=== PATIENT | female | born 1985 | race Caucasian/White ===

== ENCOUNTER → 2018-06-17 | Outpatient (CLI) | payer OTHER, SELFPAY ==
[2018-06-17 16:25] LABS: BASO % 0.2 % (0.0-1.0); EOS # 0.1 10^3/uL (0.0-0.50); HEMOGLOBIN 10.9 g/dl (12.0-15.5); LYMPH # 1.4 10^3/uL (1.5-4.5); LYMPH % 15.9 % (24.0-44.0); MEAN CORPUSCULAR HEMOGLOBIN 28.8 pg (27.0-33.0); MEAN CORPUSCULAR VOLUME 87.1 fl (80.0-96.0); MONO # 0.6 10^3/uL (0.0-0.8); MONO % 6.9 % (0.0-5.0); NEUTROPHILS # 6.7 10^3/uL (1.8-7.7); NEUTROPHILS % 75.5 % (36.0-66.0); PLATELET COUNT, AUTOMATED 191 10^3/uL (150-450); RED BLOOD COUNT 3.79 10^6/uL (4.00-5.40); WHITE BLOOD COUNT 8.9 10^3/uL (4.0-10.0)
[2018-06-17 16:57] LABS: FREE T4 1.14 NG/DL (0.76-1.46)
[2018-06-17 17:59] LABS: GC DNA AMPLIFICATION NEGATIVE (NEGATIVE)
--- NOTE | 2018-06-18 09:50 | REP ---
Clinical: Anatomical evaluation. Comparison: None . Findings: Examination demonstrates a single live intrauterine in breech presentation. motion is identified by technologist. Placenta is noted anterior and grade grade zero without evidence for placenta previa or abruption. Amniotic fluid volume is normal. Cervix measures 3.5 cm in length and appears closed. No evidence for nuchal cord. Incidental placental venous alberto noted. Gestational age by LMP 18 weeks 3 days with FADI 11/15/2018 . Gestational age by current measurements 18 weeks for the with FADI is 11/14/2018 . FHR equals 157 beats per minute. BPD 4.1 cm 18 weeks 4 days HC 15.5 cm 18 weeks 3 days AC 13.3 cm 18 weeks 5 days FL 2.8 cm 18 weeks 3 days HL 2.7 cm 18 weeks 6 days HC/AC ratio 1.17 Estimated weight 248 grams ( 54th percentile). Anatomical assessment demonstrates normal structures including cranium, choroid plexus, cavum, cerebellum/posterior fossa, facial features, lungs, cardiac ventricular outflow tracts, diaphragm, stomach, cord insertion/three-vessel cord, kidneys/bladder, and upper extremities. Limited evaluation of the four-chamber heart, spine and lower extremities due to positioning. Impression: Single live intrauterine in breech presentation demonstrating appropriate interval growth. Anatomical limitations as described above warrant reevaluation and follow-up. Electronically Signed by Nii Mead MD 06/17/2018 04:24 P
[2018-06-18 10:24] LABS: CHLAMYDIA DNA AMPLIFICATION NEGATIVE (NEGATIVE)
[2018-06-19 10:34] LABS: RUBELLA IgG QUALITATIVE IMMUNE (IMMUNE)
[2018-06-19 11:03] LABS: HIV 1&2 SCREEN CENTAUR NEGATIVE (NEGATIVE)
== END ==
LOC: M LAB 15:11
PROVIDERS: ATTEND Advanced Practice Midwife
DX: Z34.82 Encounter for supervision of other normal pregnancy, second trimester (principal); Z3A.18 18 weeks gestation of pregnancy

== ENCOUNTER → 2018-07-05 | Outpatient (CLI) | payer OTHER ==
--- NOTE | 2018-07-05 17:06 | REP ---
OB ULTRASOUND: Real-time sonographic evaluation of the gravid uterus is performed. There is a single living intrauterine gestation. Estimated gestational age 21 weeks, EDC 11/15/2018. Today's measurements indicate appropriate growth. BPD 48 mm = 20 weeks 3 days, 36th percentile HC 178 mm = 20 weeks 2 days, 28th percentile AC 167 mm = 21 weeks 5 days, 66th percentile FL 35 mm = 21 weeks 1 day, 55th percentile HC/AC ratio 1.06, within normal range. Estimated weight 416 grams, 58th percentile. heart rate 139 beats per minute. SEEN/GROSSLY UNREMARKABLE Lateral ventricles yes Posterior fossa yes Upper lip yes Four-chamber heart yes LVOT yes RVOT yes Stomach yes Cord insertion yes Three vessel cord yes Kidneys yes Bladder yes Spine yes position: Breech. Placenta: Anterior and grade 0 with no previa or abruption. Amniotic fluid: Within normal limits. Cervix: Closed and measures 4.6 cm in length. Electronically Signed by Cecil Willis MD 07/05/2018 05:11 P
== END ==
LOC: M RAD 15:58
PROVIDERS: ATTEND Advanced Practice Midwife
DX: O09.512 Supervision of elderly primigravida, second trimester (principal); Z3A.21 21 weeks gestation of pregnancy; O32.1XX0 Maternal care for breech presentation, not applicable or unspecified

== ENCOUNTER → 2018-08-13 | Outpatient (CLI) | payer OTHER ==
[2018-08-13 16:05] LABS: BASO % 0.2 % (0.0-1.0); EOS # 0.1 10^3/uL (0.0-0.50); EOS % 0.8 % (0.0-3.0); HEMATOCRIT 32.1 % (36.0-47.0); HEMOGLOBIN 10.9 g/dl (12.0-15.5); LYMPH # 2.1 10^3/uL (1.5-4.5); LYMPH % 17.7 % (24.0-44.0); MEAN CORPUSCULAR HEMOGLOBIN 29.6 pg (27.0-33.0); MEAN CORPUSCULAR VOLUME 87.2 fl (80.0-96.0); MONO # 0.5 10^3/uL (0.0-0.8); MONO % 4.1 % (0.0-5.0); NEUTROPHILS % 76.6 % (36.0-66.0); PLATELET COUNT, AUTOMATED 214 10^3/uL (150-450); RED BLOOD COUNT 3.68 10^6/uL (4.00-5.40); WHITE BLOOD COUNT 11.7 10^3/uL (4.0-10.0)
[2018-08-13 16:32] LABS: FREE THYROXINE INDEX 4.4 % (1.3-4.8); THYROID STIMULATING HORMONE 0.631 uIU/ML (0.358-3.740); THYROXINE (T4) 17.6 UG/DL (4.5-12.0)
== END ==
LOC: M LAB 14:33
PROVIDERS: ATTEND Obstetrics & Gynecology
DX: O09.512 Supervision of elderly primigravida, second trimester (principal)

== ENCOUNTER → 2018-09-18 | Outpatient (CLI) | payer OTHER ==
[2018-09-18 11:27] LABS: FREE T4 1.34 NG/DL (0.76-1.46); THYROID STIMULATING HORMONE 0.517 uIU/ML (0.358-3.740)
== END ==
LOC: M LAB 10:11
PROVIDERS: ATTEND Nurse Practitioner Family
DX: E03.9 Hypothyroidism, unspecified (principal)

== ENCOUNTER → 2018-10-01 | Outpatient (CLI) | payer OTHER ==
--- NOTE | 2018-10-02 06:44 | REP ---
Clinical: Growth evaluation. Comparison: 07/05/2018 . Findings: Examination demonstrates a single live intrauterine in cephalic presentation. motion is identified by technologist. Placenta is noted anterior and grade grade 1 without evidence for placenta previa or abruption. Amniotic fluid volume is normal. Cervix measures 4.8 cm in length and appears closed. No evidence for nuchal cord. Gestational age by LMP 33 weeks 4 days with FADI 11/15/2018 . Gestational age by current measurements 34 weeks 0 days with FADI 11/12/2018 . FHR equals 136 beats per minute. BPD 8.2 cm 33 weeks 0 days HC 30.3 cm 33 weeks 4 days AC 29.9 cm 33 weeks 6 days FL 6.8 cm 35 weeks 0 days HL 6.0 cm 34 weeks 3 days HC/AC ratio 1.01 Estimated weight 2345 grams ( 54th percentile). Amniotic fluid index: 17.2 cm (8.2 124.7) Umbilical cord SD ratio: 2.50 Impression: Single live intrauterine in cephalic presentation demonstrating appropriate interval growth. No gross abnormalities are identified. Electronically Signed by Nii Mead MD 10/02/2018 06:35 A
== END ==
LOC: M RAD 15:36
PROVIDERS: ATTEND Advanced Practice Midwife
DX: O26.843 Uterine size-date discrepancy, third trimester (principal); Z3A.34 34 weeks gestation of pregnancy

== ENCOUNTER → 2018-10-24 | Outpatient (REF) | payer OTHER | LOC: M LAB REF 17:00 | PROVIDERS: ATTEND Advanced Practice Midwife | DX: O99.283 Endocrine, nutritional and metabolic diseases complicating pregnancy, third trimester (principal) ==

== ENCOUNTER 2018-11-11 23:27 | Inpatient (IN) | payer OTHER ==
[~2018-11-11] VITALS: Ht 154.9 cm; Wt 69.3 kg
[2018-11-12] VITALS (41 sets, daily range): BP systolic 86–150; BP diastolic 54–102
[2018-11-12 00:25] LABS: HEMATOCRIT 32.6 % (36.0-47.0); HEMOGLOBIN 11.5 g/dl (12.0-15.5); MEAN CORPUSCULAR HEMOGLOBIN 30.7 pg (27.0-33.0); MEAN CORPUSCULAR HGB CONC 35.3 g/dl (32.0-36.5); MEAN CORPUSCULAR VOLUME 86.9 fl (80.0-96.0); PLATELET COUNT, AUTOMATED 197 10^3/uL (150-450); RED BLOOD COUNT 3.75 10^6/uL (4.00-5.40); WHITE BLOOD COUNT 13.2 10^3/uL (4.0-10.0)
[2018-11-12] MEDS: miSOPROStol 50 MCG 1/2 TAB (S0191) PO SCH ×4 (04:30→22:44)
--- NOTE | 2018-11-12 10:46 | HPE ---
DATE OF ADMISSION: 11/11/2018 HISTORY OF PRESENT ILLNESS: The patient is a 33-year-old female who is a 2, para 0-0-1-0 at 39 weeks and 4 days gestation with an expected date of delivery (FADI) of 11/15/2018 based off of her first-trimester ultrasound. Her has been complicated by infertility, hypothyroidism, polycystic ovarian syndrome (PCOS), advanced maternal age. She initiated care in her first trimester with [facility]. She presents to labor and delivery for an elective induction of labor. She reports active movement. She denies vaginal bleeding, leaking of fluids, or contractions. CHILDHOOD ILLNESS: Chicken pox. MEDICAL PROBLEMS: Infertility, hypothyroidism, PCOS. SURGICAL HISTORY: She had an endoscopy. FAMILY HISTORY: Noncontributory. SOCIAL HISTORY: The patient is . 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 She denies any history of abuse: Physical, emotional, or sexual. She denies any history or abuse of drugs or alcohol. She denies being a smoker. She has no history of sexually transmitted infections. PAST MEDICAL PREGNANCIES: In January of 2018, she had a chemical . LABORATORIES: Her blood type is B positive. Her hemoglobin and hematocrit in her first trimester was 10.9 and 33 with platelets of 191. Her rubella is immune. Her [facility] ([facility]) is nonreactive. Her urine had no growth. Her HIV is negative. Her hepatitis C is nonreactive. Her gonorrhea and chlamydia are both negative. She declines genetic testing. Her 1-hour glucose test is 82 with a hemoglobin and hematocrit at that time of 10.9 and 32.1 with platelets of 214. Her group B streptococcus (GBS) is negative. Her thyroid laboratories have been normal and have been managed by Dr. Flores. heart rate is 130, moderate variability, positive accelerations, no decelerations. Contractions are irregular. STERILE VAGINAL EXAMINATION (SVE): Closed/50/-2, midposition, soft, no vaginal show noted. VITAL SIGNS: Temperature is 97.7, heart rate is 72, respiratory rate is 18, blood pressure is 127/60. PHYSICAL ASSESSMENT: GENERAL: Alert and oriented times three. RESPIRATORY: Regular rate with no use of accessory muscles. ABDOMEN: Gravid and nontender to palpation. EXTREMITIES: no edema or clonus. ASSESSMENT: Intrauterine (IUP) at 39 weeks and 4 days gestation, AMA, category 1 heart rate tracing, GBS negative. PLAN: Admit the patient to labor and delivery. Saline lock and IV per unit protocol. Out of bed ad mary. Regular diet. Cytotec ordered and to be given every 4 hours at this point. Will consider a [place] bulb and IV Pitocin for the next step. Anticipate cervical ripening. Anesthesia consult per patient's request. JORDAN
--- NOTE | 2018-11-12 11:03 | NUR ---
Progress note S: Mild contractions O: QC=370/63 P=62 NAD Abd: NT gravid FHT: Category one SVE: cx L/C/P soft toco: q3 minutes A/P 33 yo G1 at term, induction Pt to get dose #3 misoprostol Cook's Catheter placed with 40 cc saline Gabe Diaz MD
[2018-11-12] MEDS ORDERED: OXYTOCIN DRIP 30 UNITS in APPROPRIATE DILUENT 1 EA IV SCH (13:30)
--- NOTE | 2018-11-12 13:49 | IPNPDOC ---
Obstetrical Progress Note Date of Service Nov 12, 2018 Subjective Pt doing well, beginning to feel some more pain with ctx now Objective Vital Signs Date Time Temp Pulse Resp B/P (MAP) Pulse Ox O2 Delivery O2 Flow Rate FiO2 11/12/18 12:37 97.8 58 16 118/68 (85) Assessment Heart Rate (FHR): 135 Variability: Moderate Accelerations: Positive Heart Rate Tracing: Category I Tocometer Contractions: Yes Frequency: regular Sterile Vaginal Examination Dilation: 1cm Effacement (%): 30% Station: -2 Cervical Consistency: Firm Assessment and Plan Age: 33 : 1 Term: 39 Status: Reassuring Group B Streptococcus: Negative Anticipate: Vaginal Delivery Additional Comments 33 yo G1 at 39 4/7 wks undergoing IOL -IOL: will start pitocin at this time, olson still in place -FWB: reassuring -GBSneg seen with Dr. Joe Villela, PGY3 [place] PGY-3 Nov 12, 2018 13:49
[2018-11-12] MEDS: LR 1,000 ML IV SCH ×2 (13:53→21:27)
[2018-11-12] MEDS ORDERED: FENTANYL 2MCG/ML ROPIVACAINE 0.2% IN 0.9% NACL 100ML IVBAG As Ordered ONE (19:41)
--- NOTE | 2018-11-12 19:42 | IPNPDOC ---
Obstetrical Progress Note Date of Service Nov 12, 2018 Subjective Doing well, whitney fell out. Now getting significantly more uncomfortable Objective Vital Signs Date Time Temp Pulse Resp B/P (MAP) Pulse Ox O2 Delivery O2 Flow Rate FiO2 11/12/18 18:44 71 16 116/74 (88) 11/12/18 17:59 97.6 Assessment Heart Rate (FHR): 140 Variability: Moderate Accelerations: Positive Heart Rate Tracing: Category I Tocometer Contractions: Yes Frequency: regular, every 1-3 min. Sterile Vaginal Examination Dilation: 4 cm Effacement (%): 80% Station: -2 (ballotable) Assessment and Plan Additional Comments 33 yo G1 at 39 4/7 wks undergoing IOL -IOL continue pitocin. Pt would like epidural then we will plan for AROM -FWB: reassuring -GBS neg -hypothyroidism: continue synthroid 100 mcg pt seen with Dr. Joe Villela, PGY3 [place] PGY-3 Nov 12, 2018 19:42
[2018-11-12] MEDS ORDERED: ePHEDrine SULFATE 25 MG/5 ML(5MG/ML) SYRINGE IV PRN (20:56)
[2018-11-12] MEDS ORDERED: NALOXONE INJ 0.4 MG/1 ML VIAL (J2310) IV PRN (20:56)
[2018-11-12] MEDS ORDERED: LACTATED RINGER'S 1000 ML IV PRN (20:56)
[2018-11-12] MEDS ORDERED: REFRIGERATOR IV KEYS XX PRN (20:56)
[2018-11-12] MEDS ORDERED: diphenhydrAMINE INJ 50MG/ML VIAL (J1200) IV PRN (20:56)
[2018-11-12] MEDS: FENTANYL/ROPIVACAINE/NACL BAG 100 ML EPIDURAL SCH (20:56)
[2018-11-12] MEDS ORDERED: ONDANSETRON 4MG/2ML VIAL (J2405) IV PRN (20:56)
[2018-11-12] MEDS ORDERED: EPIDURAL/PCA KEYS XX PRN (20:56)
[2018-11-12] MEDS ORDERED: EPIDURAL COMMENT XX SCH (20:56)
--- NOTE | 2018-11-12 21:52 | IPNPDOC ---
Obstetrical Progress Note Date of Service Nov 12, 2018 Subjective Pt doing well, comfortable s/p epidural Objective Vital Signs Date Time Temp Pulse Resp B/P (MAP) Pulse Ox O2 Delivery O2 Flow Rate FiO2 11/12/18 18:44 71 16 116/74 (88) 11/12/18 17:59 97.6 Assessment Heart Rate (FHR): 135 Variability: Moderate Accelerations: Positive Decelerations: None Tocometer Contractions: Yes Frequency: regular, every 1-3 min. Sterile Vaginal Examination Dilation: 4 cm (4-5cm) Effacement (%): 80% Station: -2 (AROM for light mec stained fluid) Assessment and Plan Additional Comments 33 yo G1 at 39 47 wks undergoing IOL IOL: now s/p AROM, on pitocin. SVE prn FWB: reassuring GBS neg seen with Dr. Joe Villela, PGY3 [place] PGY-3 Nov 12, 2018 21:52
[2018-11-13] VITALS (33 sets, daily range): BP systolic 75–117; BP diastolic 45–70
[2018-11-13] MEDS: miSOPROStol 50 MCG 1/2 TAB (S0191) PO SCH ×3 (02:34→06:29)
[2018-11-13] MEDS: LR 1,000 ML IV SCH ×2 (05:27→09:11)
[2018-11-13] MEDS: LEVOTHYROXINE 100MCG TABLET (0.1MG) PO SCH (06:00)
[2018-11-13] MEDS: FENTANYL/ROPIVACAINE/NACL BAG 100 ML EPIDURAL SCH (06:21)
[2018-11-13] MEDS ORDERED: OXYTOCIN 30 UNITS IN 0.9% NaCl 500ML IV BAG (J2590) As Ordered ONE (10:52)
[2018-11-13] MEDS: IBUPROFEN 800 MG TAB PO PRN ×2 (10:56→19:57)
[2018-11-13 11:06] LABS: CORD GAS HCO3 V 22.3 MEQ/L; CORD GAS O2 SAT V 64.5 %; CORD GAS PCO2 V 40.7 mmHg; CORD GAS PH V 7.356 UNITS; CORD GAS PO2 V 26.9 mmHg; CORD GAS SBC V 21.2 MEQ/L; CORD GAS TCO2 V 23.5 MEQ/L
[2018-11-13 11:40] LABS: APPEARANCE, URINE HAZY (CLEAR); BACTERIA, URINE AUTO 1+ (NEGATIVE); BILIRUBIN, URINE AUTO NEGATIVE (NEGATIVE); BLOOD, URINE BLOOD 3+ (NEGATIVE); COLOR, URINE YELLOW (YELLOW); GLUCOSE, URINE (UA) AUTO NEGATIVE (NEGATIVE); KETONE, URINE AUTO NEGATIVE (NEGATIVE); LEUKOCYTE ESTERASE, URINE AUTO TRACE (NEGATIVE); NITRITE, URINE AUTO NEGATIVE (NEGATIVE); PROTEIN, URINE AUTO 2+ mg/dL (NEGATIVE); RBC, URINE AUTO TNTC /HPF (0-3); SPECIFIC GRAVITY URINE AUTO 1.013 (1.002-1.035); SQUAMOUS EPITHELIAL CELL UR AU 0 /HPF (0-6); UROBILINOGEN, URINE AUTO 0.2 mg/dL (0.0-2.0); WBC, URINE AUTO 27 /HPF (0-3)
[2018-11-13] MEDS ORDERED: OXYTOCIN DRIP 30 UNITS in APPROPRIATE DILUENT 1 EA IV SCH ×4 (11:42)
[2018-11-13] MEDS ORDERED: MEASLES,MUMPS,RUBELLA VACCINE INJ (MMR-II) (90707) SC SCH (11:45)
[2018-11-13] MEDS ORDERED: IBUPROFEN 600 MG TAB PO PRN (11:45)
[2018-11-13] MEDS ORDERED: METHYLERGONOVINE MALEATE 0.2 MG TAB PO PRN (11:45)
[2018-11-13] MEDS ORDERED: ANUSOL HC CREAM 30GM TOP PRN (11:45)
[2018-11-13] MEDS ORDERED: DOCUSATE SODIUM 100 MG CAP PO PRN (11:45)
[2018-11-13] MEDS ORDERED: RHOGAM 300 MCG (1500 IU) INJ (J2790) IM SCH (11:45)
[2018-11-13] MEDS ORDERED: ACETAMINOPHEN TAB 650MG DOSE (2X325MG) PO PRN (11:45)
--- NOTE | 2018-11-13 12:38 | DN ---
DATE: 11/13/2018 Shannan is a 33-year-old 2, para 1-0-1-1 now who was admitted to labor and delivery for induction of labor. Misoprostol and IV Pitocin was used and labor did ensue. She did utilize an epidural for her labor coping. She reached full dilation at 0738. She pushed to a normal spontaneous vaginal delivery of a live female in right occiput anterior (TALIB) position with restitution with left occiput transverse (LOT) position at 10:35. There was no nuchal cord. The shoulders delivered spontaneously and the corpus immediately followed. female was placed on the maternal abdomen. The cord was clamped times two and cut by myself. The was taken immediately to the warmer for evaluation and resuscitation by Dr. Mirza cut in station operator due to meconium-stained fluid. Spontaneous expulsion of an intact placenta with three-vessel cord by Dick mechanism was at 10:40. Uterine hemostasis was achieved with IV Pitocin rapid infusion and uterine fundal massage. Estimated blood loss 350 mL. Peroneum and vaginal inspected and noted to have some significant edema, second degree laceration. The laceration was repaired with #3-0 Rapid in the usual fashion. [place] female weighed 3000 grams, 6 pounds, 10 ounces, Apgars 8 and 9. Mom is going to breast-feed her daughter and the family is undecided as to her name at this time. At the close of delivery, lap counts, needle counts and instrument counts were correct and verified.
[2018-11-14] MEDS: IBUPROFEN 800 MG TAB PO PRN ×2 (04:51→14:38)
[2018-11-14 05:24] VITALS: BP 147/74
[2018-11-14] MEDS: LEVOTHYROXINE 100MCG TABLET (0.1MG) PO SCH (06:32)
[2018-11-14] MEDS: ACETAMINOPHEN 500 MG TAB PO PRN ×2 (06:33→17:50)
[2018-11-14] MEDS: PRENATAL VITAMINS CHEWABLE TABLET PO SCH (09:22)
[2018-11-14] MEDS: DIBUCAINE 1% OINTMENT 30GM TOP PRN (09:44)
[2018-11-14 18:00] VITALS: BP 100/59
[2018-11-15] MEDS: IBUPROFEN 800 MG TAB PO PRN ×2 (01:09→08:56)
[2018-11-15] MEDS: LEVOTHYROXINE 100MCG TABLET (0.1MG) PO SCH (05:54)
[2018-11-15 06:07] VITALS: BP 126/63
[2018-11-15] MEDS: DIBUCAINE 1% OINTMENT 30GM TOP PRN (08:55)
[2018-11-15] MEDS: PRENATAL VITAMINS CHEWABLE TABLET PO SCH (08:56)
== END 2018-11-15 11:20 | disposition home or self-care (01) | DRG 807 ==
LOC: M LDI 23:27 → M OBS 11-13 13:10
PROVIDERS: ADMIT Advanced Practice Midwife; ATTEND Advanced Practice Midwife
PROC: 3E033VJ Introduction of Other Hormone into Peripheral Vein, Percutaneous Approach (ICD-10-PCS; 2018-11-11)
PROC: 3E0DXGC Introduction of Other Therapeutic Substance into Mouth and Pharynx, External Approach (ICD-10-PCS; 2018-11-11)
PROC: 10E0XZZ Delivery of Products of Conception, External Approach (ICD-10-PCS; principal; 2018-11-13)
PROC: 0KQM0ZZ Repair Perineum Muscle, Open Approach (ICD-10-PCS; 2018-11-13)
DX: O99.284 Endocrine, nutritional and metabolic diseases complicating childbirth (principal); Z37.0 Single live birth; E03.9 Hypothyroidism, unspecified; O09.523 Supervision of elderly multigravida, third trimester; E28.2 Polycystic ovarian syndrome; Z3A.39 39 weeks gestation of pregnancy; O70.1 Second degree perineal laceration during delivery

== ENCOUNTER → 2019-02-04 | Outpatient (CLI) | payer OTHER ==
[2019-02-04 11:13] LABS: FREE T4 1.1 NG/DL (0.76-1.46); THYROID STIMULATING HORMONE 0.483 uIU/ML (0.358-3.740)
== END ==
LOC: M LAB 09:55
PROVIDERS: ATTEND Nurse Practitioner Family
DX: E03.9 Hypothyroidism, unspecified (principal)

== ENCOUNTER → 2019-04-07 | Outpatient (CLI) | payer OTHER ==
[2019-04-07 12:38] LABS: FREE T4 0.94 NG/DL (0.76-1.46); THYROID STIMULATING HORMONE 0.737 uIU/ML (0.358-3.740)
== END ==
LOC: M LAB 11:08
PROVIDERS: ATTEND Nurse Practitioner Family
DX: E03.9 Hypothyroidism, unspecified (principal)

== ENCOUNTER → 2020-05-24 | Outpatient (REF) | payer OTHER | LOC: M LAB REF 16:34 | PROVIDERS: ATTEND Physician Assistant Medical | DX: Z20.828 Contact with and (suspected) exposure to other viral communicable diseases (principal) ==

== ENCOUNTER → 2022-11-27 | Outpatient (CLI) | payer OTHER ==
[2022-11-27 15:38] LABS: HEMATOCRIT 33.3 % (36.0-47.0); HEMOGLOBIN 11.1 g/dl (12.0-15.5); MEAN CORPUSCULAR HEMOGLOBIN 28.7 pg (27.0-33.0); MEAN CORPUSCULAR HGB CONC 33.3 g/dl (32.0-36.5); PLATELET COUNT, AUTOMATED 207 10^3/uL (150-450); RED BLOOD COUNT 3.87 10^6/uL (4.00-5.40); WHITE BLOOD COUNT 8.2 10^3/uL (4.0-10.0)
[2022-11-27 16:37] LABS: HIV 1&2 SCREEN NEGATIVE (NEGATIVE)
[2022-11-27 17:08] LABS: GC DNA AMPLIFICATION NEGATIVE (NEGATIVE)
== END ==
LOC: M PLALAB 12:39
PROVIDERS: ATTEND Advanced Practice Midwife
DX: Z34.91 Encounter for supervision of normal pregnancy, unspecified, first trimester (principal)

== ENCOUNTER → 2022-11-27 | Outpatient (CLI) | payer OTHER ==
[2022-11-27 16:20] LABS: FREE T3 2.3 PG/ML (2.3-4.2); FREE T4 1.12 NG/DL (0.89-1.76)
[2022-11-27 16:42] LABS: THYROID STIMULATING HORMONE 0.605 uIU/ML (0.55-4.78)
== END ==
LOC: M PLALAB 12:37
PROVIDERS: ATTEND Registered Nurse
DX: E03.9 Hypothyroidism, unspecified (principal)

== ENCOUNTER → 2022-12-15 | Outpatient (CLI) | payer OTHER, SELFPAY | LOC: M WHC 13:04 | PROVIDERS: ATTEND Obstetrics & Gynecology | DX: O32.1XX0 Maternal care for breech presentation, not applicable or unspecified (principal); Z3A.19 19 weeks gestation of pregnancy ==

== ENCOUNTER → 2023-02-09 | Outpatient (CLI) | payer OTHER ==
[2023-02-09 16:28] LABS: HEMATOCRIT 31.4 % (36.0-47.0); HEMOGLOBIN 10.6 g/dl (12.0-15.5); MEAN CORPUSCULAR HEMOGLOBIN 29.5 pg (27.0-33.0); MEAN CORPUSCULAR HGB CONC 33.8 g/dl (32.0-36.5); MEAN CORPUSCULAR VOLUME 87.5 fl (80.0-96.0); PLATELET COUNT, AUTOMATED 212 10^3/uL (150-450); RED BLOOD COUNT 3.59 10^6/uL (4.00-5.40); WHITE BLOOD COUNT 11.2 10^3/uL (4.0-10.0)
[2023-02-09 17:40] LABS: GC DNA AMPLIFICATION NEGATIVE (NEGATIVE)
== END ==
LOC: M PLALAB 11:34
PROVIDERS: ATTEND Advanced Practice Midwife
DX: Z34.82 Encounter for supervision of other normal pregnancy, second trimester (principal)

== ENCOUNTER → 2023-04-11 | Outpatient (REF) | payer OTHER | LOC: M SFHCWAGY 15:31 | PROVIDERS: ATTEND Obstetrics & Gynecology | DX: Z34.83 Encounter for supervision of other normal pregnancy, third trimester (principal) ==

== ENCOUNTER 2023-05-05 13:52 | Inpatient (IN) | payer OTHER ==
[~2023-05-05] VITALS: Ht 154.9 cm; Wt 70.0 kg
[2023-05-05] MEDS ORDERED: PRENTAB9 PO (14:24)
[2023-05-05] MEDS ORDERED: GNP250TA9 PO (14:24)
[2023-05-05] MEDS ORDERED: LEVO88TA3 PO (14:24)
[2023-05-05] MEDS ORDERED: LACTATED RINGER'S 1000 ML IV STA (14:31)
[2023-05-05] MEDS ORDERED: OXYTOCIN DRIP 30 UNITS in IV 1 EA IV PRN ×4 (14:35)
[2023-05-05 14:38] VITALS: BP 114/67
[2023-05-05] MEDS: miSOPROStol 50MCG 1/2 TABLET PO PRN ×2 (15:15→20:36)
[2023-05-05 15:23] LABS: HEMOGLOBIN 11.3 g/dl (12.0-15.5); MEAN CORPUSCULAR HEMOGLOBIN 28.8 pg (27.0-33.0); MEAN CORPUSCULAR HGB CONC 34.2 g/dl (32.0-36.5); MEAN CORPUSCULAR VOLUME 84.2 fl (80.0-96.0); PLATELET COUNT, AUTOMATED 199 10^3/uL (150-450); RED BLOOD COUNT 3.92 10^6/uL (4.00-5.40); WHITE BLOOD COUNT 9.9 10^3/uL (4.0-10.0)
[2023-05-05 15:42] LABS: URIC ACID 3.9 MG/DL (3.1-7.8)
[2023-05-05 15:44] LABS: LDH LACTATE DEHYDROGENASE 194 U/L (120-246)
[2023-05-05 15:45] LABS: ALT/SGPT 18 U/L (7.0-40); AST/SGOT 22 U/L (<34); BILIRUBIN,TOTAL 0.5 MG/DL (0.3-1.2); CREATININE FOR GFR 0.47 MG/DL (0.55-1.30); GLOMERULAR FILTRATION RATE > 60.0 (>58)
[2023-05-05 19:40] VITALS: BP 110/59
[2023-05-05 20:37] VITALS: BP 115/66
[2023-05-05 22:39] VITALS: BP 103/56
[2023-05-05 23:39] VITALS: BP 97/49
[2023-05-06] VITALS (51 sets, daily range): BP systolic 82–136; BP diastolic 49–74
[2023-05-06] MEDS: miSOPROStol 50MCG 1/2 TABLET PO PRN (00:45)
[2023-05-06] MEDS ORDERED: OXYTOCIN DRIP 30 UNITS in IV 1 EA IV SCH (08:00)
[2023-05-06] MEDS ORDERED: BICITRA 30ML SOLN UDC PO ONE (08:10)
[2023-05-06] MEDS ORDERED: BICITRA 30ML SOLN UDC As Ordered ONE (08:13)
[2023-05-06] MEDS: LR 1,000 ML IV SCH ×4 (09:00→23:19)
[2023-05-06] MEDS ORDERED: FENTANYL/ROPIVACAINE/NACL BAG 100 ML EPIDURAL SCH (19:30)
[2023-05-06] MEDS ORDERED: EPIDURAL/PCA KEYS XX PRN (19:30)
[2023-05-06] MEDS ORDERED: diphenhydrAMINE 50MG/ML VIAL IV PRN (19:30)
[2023-05-06] MEDS ORDERED: LR 500 ML IV PRN (19:30)
[2023-05-06] MEDS ORDERED: ONDANSETRON 4MG 2ML VIAL IV PRN (19:30)
[2023-05-06] MEDS ORDERED: NALOXONE INJ 0.4MG/1ML VIAL IV PRN (19:30)
[2023-05-06] MEDS: ePHEDrine SULFATE 25 MG/5 ML(5MG/ML) SYRINGE IVP PRN ×2 (19:52→19:56)
[2023-05-07] VITALS (13 sets, daily range): BP systolic 110–154; BP diastolic 59–86; O2SAT 100
[2023-05-07 01:54] LABS: CORD GAS ABE A -6.9; CORD GAS O2 SAT A 32.9 %; CORD GAS PCO2 A 58.7 mmHg; CORD GAS PH A 7.191 UNITS; CORD GAS SBC A 17.6 MMOL/L; CORD GAS TCO2 A 23.8 MMOL/L
[2023-05-07 01:55] LABS: CORD GAS ABE V -4.3; CORD GAS HCO3 V 21.7 MMOL/L; CORD GAS O2 SAT V 85.6 %; CORD GAS PCO2 V 43.1 mmHg; CORD GAS PH V 7.319 UNITS; CORD GAS PO2 V 41.3 mmHg; CORD GAS SBC V 20.6 MMOL/L
[2023-05-07] MEDS ORDERED: RHOGAM 300MCG (1500IU) INJ IM SCH (02:15)
[2023-05-07] MEDS ORDERED: DOCUSATE SODIUM 100MG CAPSULE PO PRN (02:15)
[2023-05-07] MEDS ORDERED: ACETAMINOPHEN TAB 650MG DOSE (2X325MG) PO PRN (02:15)
[2023-05-07] MEDS ORDERED: METHYLERGONOVINE MALEATE 0.2 MG TAB PO PRN (02:15)
[2023-05-07] MEDS ORDERED: OXYTOCIN DRIP 30 UNITS in IV 1 EA IV SCH (02:15)
[2023-05-07] MEDS ORDERED: IBUPROFEN 600MG TAB PO PRN (02:15)
[2023-05-07] MEDS ORDERED: LORATADINE 10 MG TAB PO ONE (04:00)
[2023-05-07] MEDS: ACETAMINOPHEN 500 MG TAB PO PRN ×3 (04:07→20:13)
[2023-05-07] MEDS: DIBUCAINE 1% OINTMENT 30GM TOP PRN (06:37)
[2023-05-07] MEDS: IBUPROFEN 800 MG TAB PO PRN ×2 (06:37→15:29)
[2023-05-07] MEDS: PRENATAL VITAMINS CHEWABLE TABLET PO SCH (08:39)
[2023-05-08] MEDS: ACETAMINOPHEN 500 MG TAB PO PRN ×2 (05:35→11:40)
[2023-05-08] MEDS: IBUPROFEN 800 MG TAB PO PRN (05:35)
[2023-05-08 06:00] VITALS: BP 106/66
[2023-05-08] MEDS: PRENATAL VITAMINS CHEWABLE TABLET PO SCH (07:49)
[2023-05-08] MEDS ORDERED: IBUP-1022 PO (08:29)
[2023-05-08] MEDS ORDERED: ACET-683 PO (08:29)
[2023-05-08] MEDS ORDERED: LORATADINE 10 MG TAB PO ONE (11:00)
[2023-05-08] MEDS: DIBUCAINE 1% OINTMENT 30GM TOP PRN (11:27)
[2023-05-09] MEDS ORDERED: MEASLES,MUMPS,RUBELLA VACCINE INJ (MMR-II) SC.IMMUN ONE (09:00)
== END 2023-05-08 13:35 | disposition home or self-care (01) | DRG 807 ==
LOC: M LDI 13:52 → M OBS 05-07 04:12
PROVIDERS: ADMIT Obstetrics & Gynecology; ATTEND Obstetrics & Gynecology
PROC: 3E033VJ Introduction of Other Hormone into Peripheral Vein, Percutaneous Approach (ICD-10-PCS; 2023-05-05)
PROC: 3E0P7VZ Introduction of Hormone into Female Reproductive, Via Natural or Artificial Opening (ICD-10-PCS; 2023-05-05)
PROC: 10E0XZZ Delivery of Products of Conception, External Approach (ICD-10-PCS; principal; 2023-05-07)
PROC: 0KQM0ZZ Repair Perineum Muscle, Open Approach (ICD-10-PCS; 2023-05-07)
DX: O69.0XX0 Labor and delivery complicated by prolapse of cord, not applicable or unspecified (principal); Z37.0 Single live birth; Z3A.39 39 weeks gestation of pregnancy; O09.523 Supervision of elderly multigravida, third trimester; O70.1 Second degree perineal laceration during delivery; O32.6XX0 Maternal care for compound presentation, not applicable or unspecified

== ENCOUNTER → 2023-08-07 | Outpatient (REF) | payer OTHER ==
[~2023-08-07] MED LIST: ACET-683 PO; GNP250TA9 PO; IBUP-1022 PO; LEVO88TA3 PO; PRENTAB9 PO
== END ==
LOC: M SFHCWAGY 18:08
PROVIDERS: ATTEND Specialist
DX: Z01.419 Encounter for gynecological examination (general) (routine) without abnormal findings (principal)
CPT/HCPCS: 87624; G0123